=== PATIENT | female | born 1990 | race Caucasian/White ===

== ENCOUNTER 2022-03-17 12:19 | Outpatient (REF) | payer OTHER, SELFPAY ==
[2022-03-17 12:37] LABS: Appearance Urine Clear; Color Urine Yellow; Glucose Urine UA Negative (Negative); Leukocyte Esterase Urine Negative (Negative); Nitrite Urine Negative (Negative); Specific Gravity - Urine 1.015 (1.005-1.025); Urine Blood Negative (Negative); Urine Ketones Negative (Negative); Urine Protein Negative (Neg-Trace)
== END 2022-03-17 12:20 | disposition home or self-care (01) ==
LOC: HO.LNP 12:19
PROVIDERS: Visit Provider Nurse Practitioner Family
DX: R10.9 Unspecified abdominal pain (principal)
CPT/HCPCS: 81003

== ENCOUNTER 2022-09-04 08:27 | Outpatient (AMB) | payer OTHER, SELFPAY ==
--- NOTE | 2022-09-04 09:13 | MHC.OFFWIV ---
Intake Vital Signs 09/04/22 09:22 Height 5 ft 2 in BP 110/70 Blood Pressure Location Rt brachial Position Sitting Pulse 60 Pulse Source Pulse Oximeter Temp 98.7 F Temp Source Temporal Artery Scan Pulse Oximetry (%) 100 Intake Visit Reasons: Est/kidney inf?(lobby) Intake Note: pt is here for possible kidney infection (had 2 previously). [employer] Required: No Accompanied by: Self / Same As Patient Allergies No Known Allergies [No Known Allergies*] Allergy (Verified 09/04/22 09:21) Do you need a note to return to daycare/school/sports/work: Yes HPI Est/kidney inf?(lobby) HPI Details 32-year-old female presents to the office for a sick visit. Patient is complaining of pain in the right lower back. In the past when she has had symptoms like this, it has always turned into a bad urinary tract infection. Currently she is having no symptoms of burning or increasing frequency. No fevers. The pain in the back is constant without any aggravating or relieving factors. It started 4 days ago. Physical Exam Vital Signs: Last Vital Signs Temp 98.7 F 09/04/22 09:22 Pulse 60 09/04/22 09:22 BP 110/70 09/04/22 09:22 Pulse Ox 100 09/04/22 09:22 Other: No CVA tenderness. No suprapubic tenderness. Results AMB Urinalysis, Automated UA Leukoctes 0 Fred/uL Last Edit by Alvaro Estrada CMA on 09/04/22 09:32 UA Nitrite Negative Last Edit by Alvaro Estrada CMA on 09/04/22 09:32 UA Urobilinogen 0.2 mg/dL Last Edit by Alvaro Estrada CMA on 09/04/22 09:32 UA Protein 0 mg/dL Last Edit by Alvaro Estrada CMA on 09/04/22 09:32 UA pH 8.0 Last Edit by Alvaro Estrada CMA on 09/04/22 09:32 UA Blood 0 Avila/uL Last Edit by Alvaro Estrada CMA on 09/04/22 09:32 UA Specific [place] 1.010 Last Edit by Alvaro Estrada CMA on 09/04/22 09:32 UA Ketone Negative Last Edit by Alvaro Estrada CMA on 09/04/22 09:32 UA Bilirubin 0 mg/dL Last Edit by Alvaro Estrada CMA on 09/04/22 09:32 UA Glucose 0 mg/dL Last Edit by Alvaro Estrada CMA on 09/04/22 09:32 Results Reviewed Results Reviewed: Laboratory Last Values Urine pH (Auto) 8.0 09/04/22 09:31 Specific [place] (Auto) 1.010 09/04/22 09:31 Urine Protein (Auto) 0 mg/dL 09/04/22 09:31 Glucose (UA)(Auto) 0 mg/dL 09/04/22 09:31 Urine Ketones (Auto) Negative 09/04/22 09:31 Urine Blood (Auto) 0 [place]/uL 09/04/22 09:31 Urine Nitrite (Auto) Negative 09/04/22 09:31 Urine Bilirubin (Auto) 0 mg/dL 09/04/22 09:31 Urine Urobilinogen (Auto) 0.2 mg/dL 09/04/22 09:31 Leukocyte Esterase (Auto) 0 Fred/uL 09/04/22 09:31 Assessment & Plan Assessment & Plan (1) Flank pain: Code(s): R10.9 - Unspecified abdominal pain Plan: Urinalysis reviewed. Will empirically treat for bladder infection. If symptoms do not improve to follow-up here. Orders: Orders AMB Urinalysis Automated Today Z13.9 - Encounter for screening, unspecified Coding Level of Care Code Est Pt Level 3 (98188) Diagnoses Flank pain R10.9
[2022-09-04 09:22] VITALS: BP 110/70; PULSE 60; TEMP 37.1; O2SAT 100
== END 2022-09-04 09:35 | disposition home or self-care (01) ==
PROVIDERS: PCP Internal Medicine; Visit Provider Internal Medicine
DX: R10.9 Unspecified abdominal pain (principal); Z13.9 Encounter for screening, unspecified
CPT/HCPCS: 81003; 99213

== ENCOUNTER 2022-10-29 23:27 | Emergency (ER) | payer OTHER, SELFPAY ==
[2022-10-29 23:43] VITALS: BP 126/76; PULSE 70; RESP 18; TEMP 36.8; O2SAT 99; BMI 22.9
[2022-10-29] MEDS: Acetaminophen 325 MG TABLET 650 MG PO (23:56)
[2022-10-30 00:08] LABS: IDNOW Serial# 08D9AD1C; Strep A Nucleic Acid Negative (Negative)
[2022-10-30 02:11] VITALS: BP 117/64; PULSE 55; RESP 16; TEMP 36.6; O2SAT 98
--- NOTE | 2022-10-30 02:19 | ED.GENADULT ---
HPI - General Adult General Chief complaint: General Medical Stated complaint: Sore throat ?Covid related Time Seen by Provider: 10/30/22 01:54 Source: patient Mode of arrival: ambulatory Limitations: no limitations History of Present Illness HPI narrative: Patient complaining having sore throat difficulty in swallowing since yesterday tested positive for COVID no fever no chills saturating 98% on room air Related Data Home Medications Medication Instructions Recorded Confirmed levonorgestrel 21 mcg/24 hours (8 intrauterine 03/17/22 03/17/22 yrs) 52 mg intrauterine device (Mirena) Previous Rx's Medication Instructions Recorded phenazopyridine 200 mg tablet 200 mg PO TID 3 days #9 tabs 09/04/22 (Pyridium) sulfamethoxazole 800 1 tab PO BID 5 days #10 tabs 09/04/22 mg-trimethoprim 160 mg tablet (Bactrim DS) fluconazole 150 mg tablet 150 mg PO Q3D 2 doses #2 tabs 09/11/22 (Diflucan) benzonatate 200 mg capsule 200 mg PO TID PRN cough #30 caps 10/30/22 Allergies Allergy/AdvReac Type Severity Reaction Status Date / Time No Known Allergies Allergy Verified 09/04/22 09:21 [No Known Allergies*] Review of Systems Review of Systems: Yes all other systems are reviewed and are negative PMFSH Social History Social History Advance Directives: No Advance Directives Information Provided: No Physical Exam ED Vital Signs: Vital Signs - 24 hr 10/29/22 23:43 10/30/22 02:11 Temperature 98.3 F 97.9 F Pulse Rate 70 55 Respiratory Rate 18 16 Blood Pressure 126/76 117/64 Pulse Oximetry 99 98 Oxygen Delivery Method Room Air BMI result Body Mass Index 22.9 Appearance: Alert. Oriented X3. No acute distress. ENT: Pharynx normal. Oral Mucosa moist Neck: Normal inspection. Neck supple. CVS: Normal heart rate and rhythm. Pulses normal. Respiratory: No respiratory distress. Equal air entry bilateral, no wheezing/rales/rhonchi Skin: Skin warm and dry. Normal skin color. Normal skin turgor. Extremities: No lower extremity edema. Neuro: Oriented X 3. Medications Administered Discontinued Medications Generic Name Dose Route Start Last Admin Trade Name Freq PRN Reason Stop Dose Admin Acetaminophen 650 mg 10/29/22 23:53 10/29/22 23:56 Acetaminophen 325 Mg Tablet PO 10/29/22 23:54 650 mg ONCE ONE Administration Benzonatate 200 mg 10/30/22 02:28 10/30/22 02:51 Benzonatate 100 Mg Capsule PO 10/30/22 02:29 200 mg ONCE ONE Administration Lidocaine HCl 15 ml 10/30/22 02:28 10/30/22 02:52 Lidocaine Hcl Viscous 2 % 15 Ml Solution MUCOUS MEM 10/30/22 02:29 15 ml ONCE ONE Administration Medical Decision Making Lab Data MDM Lab Attestation statement: I reviewed the patient's lab results. Labs: Lab Results 10/29/22 Range/Units 23:51 S. pyogenes GrpA TYLER Negative (Negative) Discharge Plan Discharge Clinical Impression: COVID-19 Patient Disposition: Home, Self-Care Instructions: COVID-19 (Coronavirus Disease 2019) (ED) Additional Instructions: Drink plenty of fluid Tessalon Perles for cough and sore throat Care as advised Prescriptions: New benzonatate 200 mg capsule 200 mg PO TID PRN (Reason: cough) Qty: 30 0RF No Action fluconazole [Diflucan] 150 mg tablet 150 mg PO Q3D 0 Days Qty: 2 0RF sulfamethoxazole-trimethoprim [Bactrim DS] 800-160 mg tablet 1 tab PO BID 5 Days Qty: 10 0RF phenazopyridine [Pyridium] 200 mg tablet 200 mg PO TID 3 Days Qty: 9 0RF Mirena 20 mcg/24 hours (8 yrs) 52 mg intrauterine device intrauterine Interventions: ED Discharge Assessment Last Done: 10/30/22 03:09 Discharge Date/Time: 10/30/22 03:11
[2022-10-30] MEDS: Benzonatate 100 MG CAPSULE 200 MG PO (02:51)
[2022-10-30] MEDS: Lidocaine HCl Viscous 2 % 15 ML SOLUTION MUCOUS MEM (02:52)
== END 2022-10-30 03:11 | disposition home or self-care (01) ==
PROVIDERS: Emergency Provider Internal Medicine; PCP Internal Medicine
DX: J02.9 Acute pharyngitis, unspecified (principal)
CPT/HCPCS: 87651; 99283